=== PATIENT | female | born 1970 | race Caucasian/White ===

== ENCOUNTER 2017-02-13 14:40 | Emergency (ER) | payer OTHER ==
[~2017-02-13] VITALS: Ht 172.7 cm; Wt 121.0 kg
[~2017-02-13 14:40] MED LIST: CETI10TA84 PO; CITA40TA12 PO; DICL-201 PO; FLUT1SPR12 NAE; FRCT/ PO; GLC/500 PO; HYDR-389 PO; MAGN400T6 PO; ONDA4TAB46 UT; PROP60CA5 PO; TOPI100T20 PO; TOPI50TA16 PO; ZNTT/150 PO
[2017-02-13 14:44] VITALS: TEMP 36.7; Ht 172.7 cm; Wt 121.0 kg
--- NOTE | 2017-02-13 15:55 | EMERGENCY ROOM VISIT NOTE ---
ED Visit Note First contact with patient: 14:59 CHIEF COMPLAINT: Chemical exposure left eye HPI: This 46-year-old female presents to the Emergency Department ambulatory for evaluation of a chemical exposure to her left eye. 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 She states that they were cleaning the cystoscope and the fluid squirted behind her glasses and hit her left eye. She states that they were using Revital-ox bedside complete tube cleaner. She believes there may have been some urine in the fluid splashed in the eye as well. She is unsure if the urine was bloody. The patient reports that immediately afterward, she flushed her eye for 5 minutes. She denies any irritation, pain or blurred vision in the left eye. She does not wear glasses or contacts. The history of the source patient is not known at this time. They have had the hepatitis B. vaccination, and she believes her titers are positive. They believe their tetanus is up-to-date. ALLERGIES: See EMR MEDICATIONS: See med list PMH: Diabetes SOCIAL HISTORY: The patient lives locally with family. Nonsmoker. Physical Exam: VITALS: Nursing notes reviewed and vitals are stable. GENERAL: This is a 46-year-old female, in no acute distress, well developed, well nourished. EYES: PERRLA, EOMs intact bilaterally. There is no conjunctival injection of the left eye. ED COURSE: I examined the patient. I spoke with the [facility], who felt that the patient had RT adequately flushed her eye and did not recommend any further evaluation or flushing of the eye. I did also speak with the pep hotline, as there was possible risk of body fluid exposure. They felt that this was a very low risk exposure, but did recommend drawing baseline labs. Employee health was contacted. Option of HIV, hepatitis C, and hepatitis B testing was discussed with the patient. The risks, benefits, purpose, and limitations of the tests were explained to the patient and all of their questions were answered. They elected to proceed. I did perform pretest counseling and the appropriate consent forms were signed. Patient was given information on prevention of exposure and transmission as well as hospital confidentiality. Risks and benefits of HIV prophylaxis were discussed with the patient. The patient elected to decline HIV prophylaxis at this time. They will follow-up with [employer] health. Wound care instructions were provided. The patient will follow-up with ophthalmology as needed. The patient was discharged in stable condition. Impression: Body fluid exposure, chemical exposure of eye Problem List Medical Problems: (1) Carpal Tunnel Syndrome Status: Chronic (2) Cellulitis Status: Resolved (3) Contact dermatitis Status: Resolved (4) Hypertension Nos Status: Chronic Current/Historical Medications Scheduled Cetirizine (Zyrtec), 10 MG PO DAILY Citalopram Hydrobromide (Celexa), 40 MG PO DAILY Fluticasone Propionate (Nasal) (Flonase Allergy Relief Ch), 1 SPRAY PARTHA DIRECTED Magnesium Oxide (Mag-Ox), 400 MG PO DAILY Metformin Hcl (Glucophage), 500 MG PO TID Ondansetron Hcl (Zofran), 8 MG UT PRN Propranolol La (Inderal La), 60 MG PO HS Ranitidine (Zantac), 150 MG PO BID Topiramate (Topamax), 50 MG PO QAM Topiramate (Topamax), 100 MG PO HS Scheduled PRN Acetamin/Butalbital/Caffeine (Fioricet), 1 TAB PO DIRECTED PRN for Pain Allergies Coded Allergies: Azelastine (Verified Allergy, Intermediate, RASH: ALLERGY TO PRESERVATIVES IN NASAL SPRAY?, 02/13/17) Diphenhydramine (Verified Allergy, Intermediate, HYPER, 02/13/17) Latex1 -Allergic Contact Dermititis (Verified Allergy, Unknown, 02/13/17) Nortriptyline (Verified Allergy, Unknown, 02/13/17) Oxycodone (Verified Adverse Reaction, Unknown, NAUSEA/VOMITING, 02/13/17) Vital Signs Date Time Temp Pulse Resp B/P Pulse Ox O2 Delivery O2 Flow Rate FiO2 02/13/17 16:27 78 18 139/81 96 02/13/17 14:44 36.7 76 16 139/89 96 Departure Information Impression Primary Impression: Chemical exposure of eye Additional Impression: Patient exposure to body fluids Dispostion Home / Self-Care Condition GOOD Referrals Vivian Huddleston DO (PCP) Sury Rasmussen Patient Instructions [facility] [employer] Additional Instructions Follow-up with employee health for further evaluation. Return here or follow-up with an technical instructor course developer for any blurred vision or pain in the eye. Problem Qualifiers
[2017-02-13 16:27] VITALS: BP 139/81; PULSE 78; O2SAT 96
== END 2017-02-13 16:28 | disposition home or self-care (01) ==
LOC: C.EDB 14:59 → C.EDD 16:28
DX: Z77.098 Contact with and (suspected) exposure to other hazardous, chiefly nonmedicinal, chemicals (principal); Y99.8 Other external cause status; E11.9 Type 2 diabetes mellitus without complications; I10 Essential (primary) hypertension